=== PATIENT | male | born 1955 ===

== ENCOUNTER 2022-07-09 20:13 | Emergency (ER) | payer OTHER ==
[~2022-07-09] VITALS: Ht 182.9 cm; Wt 108.9 kg
[2022-07-09 20:37] LABS: BASOPHILS ABSOLUTE AUTO 0.06 K/mm3 (0.00-0.23); BASOPHILS PERCENT AUTO 1 % (0-2); EOSINOPHILS ABSOLUTE AUTO 0.28 K/mm3 (0.00-0.68); EOSINOPHILS PERCENT AUTO 3 % (0-6); Hematocrit 42.7 % (37.0-53.0); Hemoglobin 14.6 g/dL (13.5-17.5); IMMATURE GRAN ABSOLUTE AUTO 0.02 K/mm3 (0.00-0.10); IMMATURE GRAN PERCENT AUTO 0 % (0-1); LYMPHOCYTES ABSOLUTE AUTO 3.74 K/mm3 (0.84-5.20); LYMPHOCYTES PERCENT AUTO 39 % (21-46); MONOCYTES ABSOLUTE AUTO 0.71 K/mm3 (0.16-1.47); MONOCYTES PERCENT AUTO 7 % (4-13); Mean Corpuscular HGB 30.2 pg (26.0-34.0); Mean Corpuscular HGB Conc 34.2 g/dL (31.5-36.5); Mean Corpuscular Volume 88 fL (80-100); Mean Platelet Volume 11.4 fL (9.1-12.4); NEUTROPHILS ABSOLUTE AUTO 4.88 K/mm3 (1.96-9.15); NEUTROPHILS PERCENT AUTO 50 % (41-73); Platelet Count 211 K/mm3 (150-400); RDW Coefficient Variation 13.3 % (11.7-14.2); RDW Standard Deviation 43.3 fL (35.1-46.3); Red Blood Cell Count 4.83 M/mm3 (4.30-5.90); White Blood Cell Count 9.69 K/mm3 (4.00-11.30)
[2022-07-09 21:35] LABS: Albumin, Blood 4.2 g/dL (3.4-5.0); Albumin/Globulin Ratio 1.3 (0.8-1.8); Bilirubin, Total 0.6 mg/dL (0.1-1.0); Bun/Creatinine Ratio 26.7 (12.0-20.0); Creatinine, Blood 0.9 mg/dL (0.60-1.20); Globulin, Blood 3.3 g/dL (2.2-4.0); Potassium, Blood 3.8 mmol/L (3.5-5.5); Total Protein, Blood 7.5 g/dL (6.4-8.2)
[2022-07-09] MEDS ORDERED: HYDR1TAB94 PO (22:19)
== END 2022-07-09 23:27 | disposition home or self-care (01) ==
LOC: ER 20:13
PROVIDERS: Physician Assistant
DX: R07.89 Other chest pain (principal); S20.212A Contusion of left front wall of thorax, initial encounter; W18.09XA Striking against other object with subsequent fall, initial encounter; Z87.891 Personal history of nicotine dependence
CPT/HCPCS: 36415; 71045; 80053; 84484; 85025; 93005; 93010; A9270; J1885

== ENCOUNTER 2024-07-18 12:14 | Day surgery (SDC) | payer OTHER ==
[~2024-07-18] VITALS: Ht 182.9 cm; Wt 111.8 kg
[~2024-07-18 12:14] MED LIST: Balanced Salt Epinephrine Irrigation Solution 500 mL IR SCH; HYDR1TAB94 PO; Lidocaine HCl/Pf 1% 5 ML VIAL XX SCH; Moxifloxacin HCL 0.5 MG/0.1 ML 0.4MLSYR LEFTEYE SCH; PHENYLEPHRINE\\TROPICAMIDE\\TETRACAINE OPHTHALMIC DILATING SOLN LEFTEYE PRN; Povidone-Iodine 450 DROP/30 ML Solution LEFTEYE SCH; Povidone-Iodine 450 DROP/30 ML Solution ONE; Tetracaine HCl/Pf 0.5% Opth Soln 4 ml ONE
[2024-07-18] MEDS ORDERED: JARDIANCE25 MG PO (12:27)
[2024-07-18] MEDS ORDERED: VALS80 PO (12:28)
[2024-07-18] MEDS ORDERED: CELE200 PO (12:29)
[2024-07-18] MEDS ORDERED: Amlodipine Bes2.5 MG PO (12:29)
[2024-07-18] MEDS ORDERED: [UNRECOGNIZED DRUG - CODE] PO (12:29)
[2024-07-18] MEDS ORDERED: ATOR80 PO (12:29)
[2024-07-18] MEDS ORDERED: GLIP5 PO (12:34)
[2024-07-18] MEDS ORDERED: Vitamin D1000 UNI1 PO (12:34)
--- NOTE | 2024-07-18 12:38 | NUR ---
07/18/24 1238 Bettie Mo AT 1230 PLEDGET AT 1231
[2024-07-18] MEDS ORDERED: Midazolam HCl 1MG / ML 2ML Vial ONE (12:41)
[2024-07-18 13:54] VITALS: BP 139/75
== END 2024-07-18 13:50 | disposition home or self-care (01) ==
LOC: ORSCSDS 12:14
PROVIDERS: Student in an Organized Health Care Education/Training Program
PROC: 08RK3JZ Replacement of Left Lens with Synthetic Substitute, Percutaneous Approach (ICD-10-PCS; principal; 2024-07-18 13:45)
DX: E11.36 Type 2 diabetes mellitus with diabetic cataract (principal); H25.813 Combined forms of age-related cataract, bilateral; H52.202 Unspecified astigmatism, left eye; K21.9 Gastro-esophageal reflux disease without esophagitis; I10 Essential (primary) hypertension; Z68.33 Body mass index [BMI] 33.0-33.9, adult; E66.9 Obesity, unspecified; Z79.84 Long term (current) use of oral hypoglycemic drugs; Z79.899 Other long term (current) drug therapy
CPT/HCPCS: 82947; J2250; V2632